=== PATIENT | male | born 1995 | race Caucasian/White ===

== ENCOUNTER 2023-08-21 09:17 | Emergency (ER) | payer BC, SELFPAY ==
--- NOTE | 2023-08-21 09:26 | ED.MALEGU ---
HPI - Male Genitourinary General Chief complaint: Skin/Abscess/Foreign Body Stated complaint: Male Problems Time Seen by Provider: 08/21/23 09:25 Source: patient Mode of arrival: ambulatory Limitations: no limitations History of Present Illness HPI Narrative: Eric is a 28-year-old male patient presenting to the clinic today with complaints of male problems. He reports two night ago there was an area near his groin that drained approximately 1 shot glass of blood. Area has become hard and painful. He denies any fever or chills. Thinks it may be a cyst. Contacted his PCP and they can not see him until Thursday and recommended he come in to be evaluated. Related Data Home Medications Medication Instructions Recorded Confirmed atomoxetine 40 mg capsule mg PO 08/21/23 bupropion HCl 300 mg 24 hr tablet, mg PO 08/21/23 extended release cyanocobalamin (vitamin B-12) mcg 08/21/23 1,000 mcg tablet ergocalciferol (vitamin D2) 1,250 08/21/23 mcg (50,000 unit) capsule gabapentin 100 mg capsule mg 08/21/23 lamotrigine 25 mg chewable mg 08/21/23 dispersible tablet lisinopril 10 tablet 08/21/23 mg-hydrochlorothiazide 12.5 mg tablet omeprazole 40 mg capsule,delayed mg 08/21/23 release phentermine 8 mg tablet (Lomaira) mg 08/21/23 tirzepatide 7.5 mg/0.5 mL mg subcut 08/21/23 subcutaneous pen injector (Mounjaro) Allergies Allergy/AdvReac Type Severity Reaction Status Date / Time No Known Allergies Allergy Verified 08/21/23 09:32 Review of Systems Review of Systems: Pertinent positives per HPI. Patient denies any fever, chills, rash, headache, visual changes, dizziness, cough, runny nose, sore throat, shortness of breath, chest pain, palpitations, nausea, vomiting, diarrhea, constipation, abdominal pain, or any urinary issues. PMFSH Comments At the time of my signature, I reviewed and agree with the nursing past medical, surgical, social, and family history. There is no relevant family history pertinent to the patient complaint. Exam Narrative: General: Well-developed, morbidly obese, in no apparent distress. Head: Normocephalic, atraumatic. Cardio: Regular rate and rhythm, s1 and s2 normal, no murmur appreciated. Resp: Clear to auscultation bilaterally, no rhonchi, rales, wheezing or rubs. Abdomen: Soft, pliable, bowel sounds present in all quadrants, non-tender to palpation, no organomegly, no CVAT tenderness. : area of concern is in the left groin region in the flap between the abdomen and pelvis. Area is tender to palpation with tunnel induration, no fluctuance, no active drainage at this time. Course Course Emergency Course: Portions of this record may have been created with voice recognition software. Level of Care: Express Care Visit Vital Signs Vital signs: Vital signs reviewed MDM - Male Genitourinary MDM Narrative Medical decision making narrative: At the time of visit patient is resting comfortably on the exam table. I suspect patient has hidradenitis suppurativa to the left groin area. Patient is nontoxic-appearing. no active drainage at this time however the area is tender to palpation with duration. Will send in prescription for doxycycline and have the patient follow-up with his PCP on Thursday as scheduled. Return precautions were reviewed Differential Diagnosis Differential diagnosis: Likely other (Hidradenitis suppurativa, cyst, abscess, cellulitis, fungal infection) Discharge Plan Discharge Clinical Impression: Suppurative hidradenitis Patient Disposition: Home, Self-Care Condition: Stable Instructions: Antibiotic Form, Hidradenitis Suppurativa (ED) Additional Instructions: Keep area clean and dry Wash daily with soap water Take doxycycline as prescribed May take Tylenol/Motrin as needed for pain Follow-up with your PCP as scheduled. Prescriptions: New doxycycline hyclate 100 mg capsule 100 mg PO BID 1
[2023-08-21 09:33] VITALS: BP 123/79; PULSE 95; RESP 18; TEMP 36.6; O2SAT 98
== END 2023-08-21 09:40 | disposition home or self-care (01) ==
PROVIDERS: Emergency Provider Nurse Practitioner Family
DX: L73.2 Hidradenitis suppurativa (principal); E11.40 Type 2 diabetes mellitus with diabetic neuropathy, unspecified; I10 Essential (primary) hypertension; F41.9 Anxiety disorder, unspecified; F32.A Depression, unspecified
CPT/HCPCS: 99203; G0463

== ENCOUNTER 2023-12-23 11:19 | Outpatient (CLI) | payer MEDICAID, SELFPAY ==
--- NOTE | 2024-01-06 19:37 | WPDSLEEPSTUD ---
Sleep Study Date of Study: 12/23/23 Ordering Provider: Aditi Saldivar, CURRY Interpreting Physician: Margo Mae, DO Sleep Study Type: Split Polysomnogram Height: 1.88 m Weight: 180.53 kg Body Mass Index: 51.0 Neck Circumference (inches): 23 [place]: 8 Reason for Sleep Study Daytime hypersomnia, difficulty staying asleep Sleep History The patient is a 28-year-old male with hypertension, type 2 diabetes, GERD, depression, anxiety, ADHD, hyperlipidemia, peripheral neuropathy and previously diagnosed sleep apnea that had a sleep study his primary care for evaluation of sleep apnea. The patient occasionally awakens from sleep short of breath. He constantly awakens at night with heartburn, belching or cough. He constantly snores loudly enough that others complain. He rarely has trouble sleeping when he has a cold. He rarely wakes up gasping for air throughout the night. He occasionally has breathing problems at night observed by himself or others. He occasionally sweats excessively at night. He frequently has heart palpitations or irregular heartbeats during the night. He occasionally falls asleep during the day but never while driving. He rarely experiences loss of muscle tone when extremely emotional. He occasionally has trouble at school or work due to sleepiness. He denies sleep paralysis and hypnagogic/ hypnopompic hallucinations. He rarely feels afraid of going to sleep. He occasionally has nightmares. He occasionally remembers his dreams. He constantly has thoughts racing through his mind. He constantly feels sad, depressed and anxious. He constantly has muscular tension. He constantly notices parts of his body jerk. He constantly kicks during the night. He constantly has crawling and aching feelings in his legs and constantly has leg pain during the night. He rarely grinds his teeth during sleep and never awakens with morning jaw pain. He is constantly bothered by pain during the day and occasionally awakened by pain during the night. He frequently wakes up with sore or achy muscles. He constantly wakes up with pain in the neck, spine and other joints. He goes to bed at 1:00 a.m. on both weekdays and weekends. It takes him 30-60 minutes to fall asleep. He wakes up 5-6 times throughout the night to change position or urinate and is able to fall back asleep within 5 minutes. He wakes up at 9:00 a.m. on both weekdays and weekends. He typically gets 6 hours of sleep per night. He will stay in bed for 30 minutes after waking up in the morning. He currently lives with friends. He will consume caffeinated beverages within 2 hours of bedtime. He denies engaging in physical exercise before bedtime. He will read and watch television before falling asleep. He denies taking naps in the afternoon or the evening. He will consume caffeinated beverages throughout the day. He denies tobacco and alcohol use. He does use an unspecified recreational drug. Medications Home Medications Medication Instructions Recorded Confirmed Type atomoxetine 40 mg capsule mg PO 08/21/23 History bupropion HCl 300 mg 24 hr tablet, mg PO 08/21/23 History extended release cyanocobalamin (vitamin B-12) mcg 08/21/23 History 1,000 mcg tablet doxycycline hyclate 100 mg capsule 100 mg PO BID 10 days #20 caps 08/21/23 Rx ergocalciferol (vitamin D2) 1,250 08/21/23 History mcg (50,000 unit) capsule gabapentin 100 mg capsule mg 08/21/23 History lamotrigine 25 mg chewable mg 08/21/23 History dispersible tablet lisinopril 10 tablet 08/21/23 History mg-hydrochlorothiazide 12.5 mg tablet omeprazole 40 mg capsule,delayed mg 08/21/23 History release phentermine 8 mg tablet (Lomaira) mg 08/21/23 History tirzepatide 7.5 mg/0.5 mL mg subcut 08/21/23 History subcutaneous pen injector (Mounjaro) Sleep Procedure A full night polysomnogram using the [employer] SleepCrunched multi-channel system recorded
[2024-01-06 19:49] VITALS: BMI 51.0
== END 2023-12-24 06:57 | disposition home or self-care (01) ==
LOC: ANHCSM 11:20
PROVIDERS: Visit Provider Physician Assistant
DX: G47.33 Obstructive sleep apnea (adult) (pediatric) (principal)
CPT/HCPCS: 95811

== ENCOUNTER 2024-09-02 17:10 | Emergency (ER) | payer BC, SELFPAY ==
[2024-09-02] VITALS (22 sets, daily range): BP systolic 107–136; BP diastolic 48–88; PULSE 102–123; RESP 15–24; TEMP 36.9; O2SAT 94–100
--- NOTE | ~2024-09-02 | CT_ITS ---
EXAMINATION: CT chest abdomen pelvis w con DATE: 09/02/2024 21:55 INDICATION: Chest pain. Abdominal pain. TECHNIQUE: Computed tomography (CT) of the chest, abdomen, and pelvis was performed with 100 mL Omnip aque 350 intravenous contrast. Automated exposure control and iterative reconstruction technique were employed. The dose-length product was 2434.14 mGy-cm. COMPARISON: Chest 2 views 09/02/24 FINDINGS: CHEST CT: There is no pneumonia or pleural effusion. The heart size is normal. No pericardial effusion. There i s bilateral gynecomastia. There is moderate thoracic spondylosis. There is mild chronic anterior wedg ing of multiple lower thoracic vertebral bodies. ABDOMEN/PELVIS CT: There is diffuse hepatic steatosis. The gallbladder, spleen, pancreas, adrenal glands, and kidneys ar e normal. There are no dilated loops of bowel. The appendix is normal. There are no pathologically en larged lymph nodes. There is no free intraperitoneal fluid. There is mild lumbar spondylosis. IMPRESSION: 1. Diffuse hepatic steatosis. Reviewed, dictated and finalized at location A. CHECKER
--- NOTE | ~2024-09-02 | XR_ITS ---
EXAMINATION: XR chest 2V DATE: 09/02/2024 17:30 INDICATION: Chest pain. TECHNIQUE: Frontal and lateral views of the chest were obtained on 3 radiographs. COMPARISON: None. FINDINGS: The lung volumes are small. There are mild airspace opacities in the perihilar regions. No pleural effusion or pneumothorax. The heart size is normal. IMPRESSION: 1. Small lung volumes with mild airspace opacities in the perihilar regions, likely atelectasis. Reviewed, dictated and finalized at location A. CIPAL [employer] JUDGE IMPRESSION: 1. Small lung volumes with mild airspace opacities in the perihilar regions, li michael atelectasis.
--- NOTE | 2024-09-02 17:15 | ECG_ITS ---
Test Date: 2024-09-02 17:20:10 Measurements Intervals [place] Rate: 122 P: 23 [place]: 148 QRS: 89 QRSD: 115 T: -12 QT: 328 QTc: 469 Interpretive Statements SINUS TACHYCARDIA INTRAVENTRICULAR CONDUCTION DELAY DELAYED PRECORDIAL R/S TRANSITION ST-T WAVE ABNORMALITY IN INFERIOR LEADS- CONSIDER ISCHEMIA BASELINE WANDER- I, II, V6 ABNORMAL ECG No previous ECG available for comparison Electronically Signed On 09-02-2024 18:59:43 RN LABOR AND DELIVERY by Braxton Antony D.O.
[2024-09-02 17:30] LABS: Basophils Percent Auto 0.6 % (0.2-1.2); Eosinophils Absolute Auto 0.1 K/mm3 (0-0.3); Eosinophils Percent Auto 1.8 % (0-4.4); Hematocrit 49.4 % (42.0-52.0); Hemoglobin 17.1 g/dL (14.0-18.0); Immature Granulocyte Absolute 0.03 K/mm3 (0.00-0.031); Immature Granulocyte Percent A 0.4 % (0-0.5); Lymphocytes Absolute Auto 2.65 K/mm3 (0.9-3.2); Mean Corpuscular HGB Conc 34.6 g/dl (32-36); Mean Corpuscular Hemoglobin 31.1 pg (26-34); Mean Corpuscular Volume 89.8 fl (80-100); Mean Platelet Volume 9.5 fl (7.4-10.4); Monocytes Absolute Auto 0.8 K/mm3 (0.1-0.6); Monocytes Percent Auto 10.8 % (2.6-8.5); Neutrophils Absolute Auto 3.5 K/mm3 (1.3-6.7); Neutrophils Percent Auto 49.4 % (45.5-73.1); Platelet Count Result 186 k/mm3 (150-375); Red Cell Distribution Width 13.2 % (11.5-14.5); White Blood Count 7.2 K/mm3 (4.5-10.0)
[2024-09-02 17:40] LABS: Alanine Aminotransferase 72 U/L (6-50); Albumin Level 4.7 g/dL (3.5-5.1); Alkaline Phosphatase 85 U/L (38-126); Anion Gap 8 mmol/L (4-12); Aspartate Amino Transferase 66 U/L (17-59); Bilirubin,Total 0.8 mg/dL (0.2-1.3); Blood Urea Nitrogen 12 mg/dL (9-20); Calcium 9.8 mg/dL (8.4-10.2); Carbon Dioxide 29 mmol/L (22-30); Chloride 101 mmol/L (98-107); Estimated CRCL calculation 276 ml/min; Estimated Glomerular Filt Rate > 60; Glucose 236 mg/dL (65-110); Lipase 107 U/L (23-300); Potassium 4.1 mmol/L (3.4-5.0); Sodium 138 mmol/L (137-145)
[2024-09-02 17:52] LABS: Troponin I < 0.012 ng/mL (0.000-0.034)
[2024-09-02 17:54] LABS: Prothrombin Time 13.8 Seconds (11.1-14.7)
[2024-09-02 17:55] LABS: Partial Thromboplastin Time 27.5 Seconds (22.3-36.8)
--- NOTE | 2024-09-02 18:33 | ED_ITS ---
HPI - Abdominal Pain General Chief Complaint: Chest Pain <Laura Jolley ENGINEERING TECHNICAL SPECIALIST - Last Filed: 09/02/24 18:40> Stated Complaint: L UPPER ABD/LOWER CHEST PAIN <Laura Jolley APRN - Last Filed: 09/02/24 18:40> Time Seen by Provider: 09/02/24 18:15 <Laura Jolley ENGINEERING TECHNICAL SPECIALIST - Last Filed: 09/02/24 18:40> Focused HPI: Patient is a 29-year-old male who presents to the ER with left upper quadrant abdominal pain. He reports he has a history of hypertension, GERD, diabetes, and constant but stable suicidal ideation (he endorses he is not at risk for self-harm). Patient reports he has a history of hernia and intermittent abdominal pain, but in the last 2 days pain has become intermittently sharp and is constantly at a 2 to 3/10. He reports nothing aggravates his pain, but it does worsen with palpation. Patient denies urinary symptoms and reports his last bowel movement was the morning and it was normal. GENERAL: Well-appearing, well-nourished, and in no acute distress. HEAD: Normocephalic, atraumatic. CHEST: Clear to auscultation. ?No respiratory distress. HEART: Tachycardia. Regular rhythm. NEURO: ?Alert and oriented x3. Patient screened in triage and initial orders placed.? ?Additional care and disposition to be based upon?diagnostic testing and treatment. <Laura Jolley ENGINEERING TECHNICAL SPECIALIST - Last Filed: 09/02/24 18:40> Focused HPI: Patient is a 29-year-old male who presents to the ER with left upper quadrant abdominal pain. He reports he has a history of hypertension, GERD, diabetes, and constant but stable suicidal ideation (he endorses he is not at risk for self-harm). Patient reports he has a history of hernia and intermittent abdominal pain, but in the last 2 days pain has become intermittently sharp and is constantly at a 2 to 3/10. He reports nothing aggravates his pain, but it does worsen with palpation. Patient denies urinary symptoms and reports his last bowel movement was the morning and it was normal. GENERAL: Well-appearing, well-nourished, and in no acute distress. HEAD: Normocephalic, atraumatic. CHEST: Clear to auscultation. ?No respiratory distress. HEART: Tachycardia. Regular rhythm. NEURO: ?Alert and oriented x3. Patient screened in triage and initial orders placed.? ?Additional care and disposition to be based upon?diagnostic testing and treatment. <Harmony Guardado PA-C - Last Filed: 09/03/24 01:41> Source: patient <CURRY Reagan Last Filed: 09/03/24 01:41> Mode of arrival: ambulatory <Harmony Guardado PA-C - Last Filed: 09/03/24 01:41> Limitations: no limitations <CURRY Reagan Last Filed: 09/03/24 01:41> History of Present Illness HPI narrative: Agree with above HPI. Reports pain became more constant and severe today and began radiating up into his left-sided chest. Was referred to the ED by PCP. Patient does admit he feels like he had a panic attack prior to arrival. Denies SOB. <Harmony Guardado PA-C - Last Filed: 09/03/24 01:41> Related Data Home Medications: Home Medications Medication Instructions Recorded Confirmed atomoxetine 40 mg capsule mg PO 08/21/23 bupropion HCl 300 mg 24 hr tablet, mg PO 08/21/23 extended release cyanocobalamin (vitamin B-12) mcg 08/21/23 1,000 mcg tablet ergocalciferol (vitamin D2) 1,250 08/21/23 mcg (50,000 unit) capsule gabapentin 100 mg capsule mg 08/21/23 lamotrigine 25 mg chewable mg 08/21/23 dispersible tablet lisinopril 10 tablet 08/21/23 mg-hydrochlorothiazide 12.5 mg tablet omeprazole 40 mg capsule,delayed mg 08/21/23 release phentermine 8 mg tablet (Lomaira) mg 08/21/23 tirzepatide 7.5 mg/0.5 mL mg subcut 08/21/23 subcutaneous pen injector (Mikelunpratimaro) <Laura Jolley APRN - Last Filed: 09/02/24 18:40> Allergies/Adverse Reactions: Allergies Allergy/AdvReac Type Severity Reaction Status Date / Time No Known Allergies Allergy Verified 08/21/23 09:32 <Laura Jolley APRN - Last Filed: 09/02/24 18:40> Review of Systems Review of Systems: All systems reviewed & are unremarkable except as noted in HPI. <CURRY Reagan Last Filed: 09/03/24 01:41> All systems reviewed & are unremarkable except as noted in HPI and below <Harmony Guardado PA-C - Last Filed: 09/03/24 01:41> Exam Narrative: GENERAL: Well appearing, morbidly obese with BMI of 55.5, non-toxic, in no acute distress. HEAD: Normocephalic, atraumatic. RESPIRATORY: Airway patent, respirations nonlabored. Clear to auscultation bilaterally, no rales, rhonchi, wheezing. CARDIOVASCULAR: Tachycardic with regular rhythm without murmurs, rubs, or gallops. ABDOMINAL: Soft, mild diffuse tenderness throughout abdomen, worst throughout left mid/lateral/upper abdomen. Nondistended. Normoactive BS. MUSCULOSKELETAL: Moves all extremities. No gross deformities. SKIN: Warm, dry, normal color. NEURO: A&O X3. Speech clear. Cranial nerves II-XII grossly intact. Steady gait. No ataxic movements. PSYCHIATRIC: Mildly anxious. Normal interaction. <CURRY Reagan Last Filed: 09/03/24 01:41> Course Vital Signs Vital signs: Vital Signs Temperature 98.4 F 09/02/24 17:48 Pulse Rate 123 H 09/02/24 17:48 Respiratory Rate 18 09/02/24 17:48 Blood Pressure 128/84 09/02/24 17:48 Pulse Oximetry 95 09/02/24 17:48 Temperature 98.4 F 09/02/24 17:48 Pulse Rate 110 H 09/02/24 22:30 Respiratory Rate 18 09/02/24 22:30 Blood Pressure 107/48 L 09/02/24 21:01 Pulse Oximetry 95 09/02/24 23:15 Oxygen Delivery Room Air 09/02/24 21:28 <Laura Jolley APRN - Last Filed: 09/02/24 18:40> Vital Signs Temperature 98.4 F 09/02/24 17:48 Pulse Rate 123 H 09/02/24 17:48 Respiratory Rate 18 09/02/24 17:48 Blood Pressure 128/84 09/02/24 17:48 Pulse Oximetry 95 09/02/24 17:48 Temperature 98.4 F 09/02/24 17:48 Pulse Rate 110 H 09/02/24 22:30 Respiratory Rate 18 09/02/24 22:30 Blood Pressure 107/48 L 09/02/24 21:01 Pulse Oximetry 95 09/02/24 23:15 Oxygen Delivery Room Air 09/02/24 21:28 <Harmony Guardado PA-C - Last Filed: 09/03/24 01:41> MDM - Abdominal Pain MDM Narrative Medical decision making narrative: Patient presented to ED with 1 week history of left upper abdominal pain, worsening today and radiates slightly into left-sided chest. Vital signs are stable upon arrival. Patient mildly tachycardic, but does appear anxious. Afebrile, stable oxygen. EKG with sinus tachycardia, nonspecific ST changes. No acute ST elevation or depression. Troponin negative x2. HEART score = 2 based on RF (obesity, HTN, DM). Patient denying any shortness of breath, pleuritic pain. Very low suspicion for PE. Laboratory studies are otherwise unremarkable. Blood glucose is mildly elevated to 236. Lactic is within normal limits. Minimal elevation of LFTs. Normal lipase. Urine without signs of infection. CT scan of chest/abdomen/pelvis obtained and showing diffuse hepatic steatosis, otherwise unremarkable. No other intra-abdominal or cardiopulmonary abnormalities. Patient given Pepcid, Tylenol, GI cocktail in the ED. On re- evaluation, he is feeling improved. Suspect gastritis/GERD picture. Patient has previously been on omeprazole. Will increase to Protonix. Discussed fu rther management of gastritis/GERD, given strict return precautions. He is in agreement with plan and feels comfortable going home. Discharged in stable condition. <Harmony Guardado PA-C - Last Filed: 09/03/24 01:41> Medical Records Attestation: I reviewed the patient's medical records. <CURRY Reagan Last Filed: 09/03/24 01:41> Lab Data Attestation: I reviewed the patient's lab results. <Harmony Guardado PA-C - Last Filed: 09/03/24 01:41> Result diagrams: 09/02/24 17:21 09/02/24 17:21 <Laura Jolley APRN - Last Filed: 09/02/24 18:40> Labs: Lab Results 09/02/24 09/02/24 Range/Units 17:21 21:20 WBC 7.2 (4.5-10.0) K/mm3 RBC 5.50 (4.6-6.20) M/mm3 Hgb 17.1 (14.0-18.0) g/dL Hct 49.4 (42.0-52.0) % MCV 89.8 (80-100) fl MCH 31.1 (26-34) pg MCHC 34.6 (32-36) g/dl RDW 13.2 (11.5-14.5) % Plt Count 186 (150-375) k/mm3 MPV 9.5 (7.4-10.4) fl Immature Gran % (Auto) 0.4 (0-0.5) % Neut % (Auto) 49.4 (45.5-73.1) % Lymph % (Auto) 37.0 (18.3-44.2) % [place] % (Auto) 10.8 H (2.6-8.5) % Eos % (Auto) 1.8 (0-4.4) % Baso % (Auto) 0.6 (0.2-1.2) % Lymph # (Auto) 2.65 (0.9-3.2) K/mm3 [place] # (Auto) 0.8 H (0.1-0.6) K/mm3 Eos # (Auto) 0.1 (0-0.3) K/mm3 Baso # (Auto) 0.0 (0.0-0.1) K/mm3 Abs Immat Gran (auto) 0.03 (0.00-0.031) K/mm3 Absolute Neuts (auto) 3.5 (1.3-6.7) K/mm3 Absolute Nucleated RBC 0.000 (0.0-0.012) K/mm3 Nucleated RBC % 0.0 (0.0-0.2) % PT 13.8 (11.1-14.7) Seconds INR 1.0 APTT 27.5 (22.3-36.8) Seconds Sodium 138 (137-145) mmol/L Potassium 4.1 (3.4-5.0) mmol/L Chloride 101 (98-107) mmol/L Carbon Dioxide 29 (22-30) mmol/L Anion Gap 8 (4-12) mmol/L BUN 12 (9-20) mg/dL Creatinine 0.60 L (0.7-1.3) mg/dL Estim Creat Clear Calc 276 ml/min Estimated GFR > 60 (59 - ) Glucose 236 H (65-110) mg/dL Lactic Acid 2.0 (0.7-2.0) mmol/L Calcium 9.8 (8.4-10.2) mg/dL Total Bilirubin 0.8 (0.2-1.3) mg/dL AST 66 H (17-59) U/L ALT 72 H (6-50) U/L Alkaline Phosphatase 85 (38-126) U/L Troponin I < 0.012 < 0.012 (0.000-0.034) ng/mL Total Protein 9.0 H (6.3-8.2) g/dL Albumin 4.7 (3.5-5.1) g/dL Lipase 107 (23-300) U/L Urine Color Yellow (Yellow) Urine Appearance Cloudy H (Clear) Urine pH 5.5 (5.0-9.0) Ur Specific [place] 1.031 (1.001-1.035) Urine Protein Negative (Negative) mg/dL Urine Glucose (UA) 3+ H (Negative) mg/dL Urine Ketones Negative (Negative) mg/dL Ur Blood (Man) Negative (Negative) Urine Nitrate Negative (Negative) Urine Bilirubin Negative (Negative) Urine Urobilinogen 0.2 (<2.0) mg/dL Leukocyte Esterase Rfl Negative (Negative) SAMANTHA/UL Urine RBC 0-2 (0-2) /hpf Urine WBC 0-5 (0-3) /hpf Ur Squamous Epith Cells Few (Few) /hpf Urine Bacteria None seen /hpf Urine Casts 0-2 <Laura Jolley, ENGINEERING TECHNICAL SPECIALIST - Last Filed: 09/02/24 18:40> Lab Results 09/02/24 09/02/24 Range/Units 17:21 21:20 WBC 7.2 (4.5-10.0) K/mm3 RBC 5.50 (4.6-6.20) M/mm3 Hgb 17.1 (14.0-18.0) g/dL Hct 49.4 (42.0-52.0) % MCV 89.8 (80-100) fl MCH 31.1 (26-34) pg MCHC 34.6 (32-36) g/dl RDW 13.2 (11.5-14.5) % Plt Count 186 (150-375) k/mm3 MPV 9.5 (7.4-10.4) fl Immature Gran % (Auto) 0.4 (0-0.5) % Neut % (Auto) 49.4 (45.5-73.1) % Lymph % (Auto) 37.0 (18.3-44.2) % [place] % (Auto) 10.8 H (2.6-8.5) % Eos % (Auto) 1.8 (0-4.4) % Baso % (Auto) 0.6 (0.2-1.2) % Lymph # (Auto) 2.65 (0.9-3.2) K/mm3 [place] # (Auto) 0.8 H (0.1-0.6) K/mm3 Eos # (Auto) 0.1 (0-0.3) K/mm3 Baso # (Auto) 0.0 (0.0-0.1) K/mm3 Abs Immat Gran (auto) 0.03 (0.00-0.031) K/mm3 Absolute Neuts (auto) 3.5 (1.3-6.7) K/mm3 Absolute Nucleated RBC 0.000 (0.0-0.012) K/mm3 Nucleated RBC % 0.0 (0.0-0.2) % PT 13.8 (11.1-14.7) Seconds INR 1.0 APTT 27.5 (22.3-36.8) Seconds Sodium 138 (137-145) mmol/L Potassium 4.1 (3.4-5.0) mmol/L Chloride 101 (98-107) mmol/L Carbon Dioxide 29 (22-30) mmol/L Anion Gap 8 (4-12) mmol/L BUN 12 (9-20) mg/dL Creatinine 0.60 L (0.7-1.3) mg/dL Estim Creat Clear Calc 276 ml/min Estimated GFR > 60 (59 - ) Glucose 236 H (65-110) mg/dL Lactic Acid 2.0 (0.7-2.0) mmol/L Calcium 9.8 (8.4-10.2) mg/dL Total Bilirubin 0.8 (0.2-1.3) mg/dL AST 66 H (17-59) U/L ALT 72 H (6-50) U/L Alkaline Phosphatase 85 (38-126) U/L Troponin I < 0.012 < 0.012 (0.000-0.034) ng/mL Total Protein 9.0 H (6.3-8.2) g/dL Albumin 4.7 (3.5-5.1) g/dL Lipase 107 (23-300) U/L Urine Color Yellow (Yellow) Urine Appearance Cloudy H (Clear) Urine pH 5.5 (5.0-9.0) Ur Specific [place] 1.031 (1.001-1.035) Urine Protein Negative (Negative) mg/dL Urine Glucose (UA) 3+ H (Negative) mg/dL Urine Ketones Negative (Negative) mg/dL Ur Blood (Man) Negative (Negative) Urine Nitrate Negative (Negative) Urine Bilirubin Negative (Negative) Urine Urobilinogen 0.2 (<2.0) mg/dL Leukocyte Esterase Rfl Negative (Negative) SAMANTHA/UL Urine RBC 0-2 (0-2) /hpf Urine WBC 0-5 (0-3) /hpf Ur Squamous Epith Cells Few (Few) /hpf Urine Bacteria None seen /hpf Urine Casts 0-2 <Harmony Guardado PA-C - Last Filed: 09/03/24 01:41> Imaging Data Attestation: I personally reviewed and interpreted this imaging study as follows: <Harmony Guradado PA-C - Last Filed: 09/03/24 01:41> Radiologist's impression: ITS Impressions Chest X-Ray 09/02/24 17:30 IMPRESSION: 1. Small lung volumes with mild airspace opacities in the perihilar regions, likely atelectasis. Chest/Abdomen/Pelvis CT 09/02/24 21:56 IMPRESSION: 1. Diffuse hepatic steatosis. <OXANA Barnett Last Filed: 09/02/24 18:40> ITS Impressions Chest X-Ray 09/02/24 17:30 IMPRESSION: 1. Small lung volumes with mild airspace opacities in the perihilar regions, likely atelectasis. Chest/Abdomen/Pelvis CT 09/02/24 21:56 IMPRESSION: 1. Diffuse hepatic steatosis. <Harmony Guardado PA-C - Last Filed: 09/03/24 01:41> ECG Data EKG #1: Attestation: I personally reviewed and interpreted this ECG as follows: <Harmony Guardado PA-C - Last Filed: 09/03/24 01:41> ECG completion date: 09/02/24 <Harmony Guardado PA-C - Last Filed: 09/03/24 01:41> ECG completion time: 17:20 <Harmony Guardado PA-C - Last Filed: 09/03/24 01:41> tachycardia (122), sinus rhythm and non-specific ST changes <Harmony Guardado PA-C - Last Filed: 09/03/24 01:41> Discharge Plan Discharge Clinical Impression: Left upper quadrant abdominal pain <Laura Jolley APRN - Last Filed: 09/02/24 18:40> Patient Disposition: Home, Self-Care <Laura Jolley APRN - Last Filed: 09/02/24 18:40> Condition: Stable <Laura Jolley APRN - Last Filed: 09/02/24 18:40> Instructions: Antibiotic Form, Chest Pain (ED), Diet for Stomach Ulcers and Gastritis (ED), GERD (Gastroesophageal Reflux Disease) (ED), Abdominal Pain (ED) <Laura Jolley APRN - Last Filed: 09/02/24 18:40> Additional Instructions: Your workup here was reassuring. Take Protonix daily as prescribed for acid reflux/stomach irritation. You may continue Tylenol as needed for pain. Follow-up with your primary care doctor for further evaluation. Return to the ED if you experience worsening or severe chest or abdominal pain, difficulty breathing, unable to keep down food or drink, fevers, or any other symptoms of concern. <Laura Jolley APRN - Last Filed: 09/02/24 18:40> Prescriptions: New pantoprazole [Protonix] 20 mg tablet,delayed release (DR/EC) 20 mg PO HS 28 Days Qty: 28 0RF No Action Lomaira 8 mg tablet cyanocobalamin (vitamin B-12) 1,000 mcg tablet lamotrigine 25 mg tablet, chewable dispersible omeprazole 40 mg capsule,delayed release(DR/EC) gabapentin 100 mg capsule ergocalciferol (vitamin D2) 1,250 mcg (50,000 unit) capsule lisinopril-hydrochlorothiazide 10-12.5 mg tablet atomoxetine 40 mg capsule PO bupropion HCl 300 mg tablet extended release 24 hr PO Mounjaro 7.5 mg/0.5 mL pen injector SUBCUT doxycycline hyclate 100 mg capsule 100 mg PO BID 10 Days Qty: 20 0RF <Laura Jolley APRN - Last Filed: 09/02/24 18:40> Follow-up/Referrals: Janna,CURRY Pennington [Primary Care Provider] - <Laura Jolley APRN - Last Filed: 09/02/24 18:40> Time of Disposition: 23:36 <Laura Jolley APRN - Last Filed: 09/02/24 18:40> 23:36 <Harmony Guardado PA-C - Last Filed: 09/03/24 01:41> Quality HEART score for chest pain patients History: slightly suspicious <Harmony Guardado PA-C - Last Filed: 09/03/24 01:41> ECG: normal <Harmony Guardado PA-C - Last Filed: 09/03/24 01:41> Age: < or = to 45 years <Harmony Guardado PA-C - Last Filed: 09/03/24 01:41> Risk factors: > or = to 3 risk factors of atherosclerotic disease <Harmony Guardado PA-C - Last Filed: 09/03/24 01:41> Troponin: < or = to 1x normal limit <Harmony Guardado PA-C - Last Filed: 09/03/24 01:41> Heart score: 2 <Harmony Guardado PA-C - Last Filed: 09/03/24 01:41>
--- NOTE | 2024-09-02 20:16 | ECG_ITS ---
Test Date: 2024-09-02 20:20:25 Measurements Intervals [place] Rate: 106 P: 23 KS: 155 QRS: 72 QRSD: 113 T: -18 QT: 342 QTc: 455 Interpretive Statements SINUS TACHYCARDIA WITH VENTRICULAR PREMATURE COMPLEX BORDERLINE R WAVE PROGRESSION, ANTERIOR LEADS CONSIDER INFERIOR INFARCT, AGE INDETERMINATE BASELINE ARTIFACT- I, III, AVR, AVL, AVF, V1-V6 ABNORMAL ECG Compared to ECG 09/02/2024 17:20:10 HEART RATE HAS DECREASED Electronically Signed On 09-03-2024 07:50:45 [employer]PA[employer]ER by Braxton Antony D.O.
[2024-09-02 21:33] LABS: Add Urine Microscopic? YES; Appearance Urine Cloudy (Clear); Bacteria Urine None Seen /hpf; Bilirubin Urine Negative (Negative); Blood Urine Negative (Negative); Color Urine Yellow (Yellow); Glucose Urine UA 3+ mg/dL (Negative); Ketones Urine Negative (Negative); Leukocyte Esterase Ur Negative LEU/UL (Negative); Nitrate Urine Negative (Negative); Non Pathogenic Casts 0-2; Protein Urine Negative (Negative); RBC Urine 0-2 /hpf (0-2); Specific Grav Ur 1.031 (1.001-1.035); Squamous Epithelial Cell Urine Few /hpf (Few); Urobilinogen Urine 0.2 mg/dL (<2.0); WBC Urine 0-5 /hpf (0-3); pH Urine 5.5 (5.0-9.0)
[2024-09-02 21:49] LABS: Troponin I < 0.012 ng/mL (0.000-0.034)
--- NOTE | 2024-09-02 21:52 | PC.NURSE ---
Patient in CT at this time.
[2024-09-02] MEDS: ACETAMINOPHEN 500 MG TABLET 1000 MG PO (22:48)
[2024-09-02] MEDS: BELLADONNA ALK/PHENOB ELIX 10 ML, MAG HYDROX/ALUMINUM HYD/SIMETH 30 ML, LIDOCAINE HCL 2... PO (22:49)
[2024-09-02] MEDS: FAMOTIDINE 20 MG/2 ML VIAL IV PUSH (22:49)
== END 2024-09-02 23:55 | disposition home or self-care (01) ==
PROVIDERS: Emergency Medicine; Registered Nurse; Emergency Provider Physician Assistant; PCP Physician Assistant
DX: R10.12 Left upper quadrant pain (principal); I10 Essential (primary) hypertension; E11.9 Type 2 diabetes mellitus without complications; E66.01 Morbid (severe) obesity due to excess calories; Z68.43 Body mass index [BMI] 50.0-59.9, adult; K21.9 Gastro-esophageal reflux disease without esophagitis; Z79.899 Other long term (current) drug therapy; Z79.85 Long-term (current) use of injectable non-insulin antidiabetic drugs; R00.0 Tachycardia, unspecified; I45.9 Conduction disorder, unspecified; R94.31 Abnormal electrocardiogram [ECG] [EKG]; I49.3 Ventricular premature depolarization; K76.0 Fatty (change of) liver, not elsewhere classified
CPT/HCPCS: 36415; 71046; 71260; 74177; 80053; 81001; 83605; 83690; 84484; 85025; 85610; 85730; 87040; 93005; 96374; 99284; A9270; Q9967